=== PATIENT | female | born 1970 | race Two or more races ===

== ENCOUNTER 2020-11-18 11:00 | Inpatient (IN) | payer OTHER ==
[~2020-11-18] VITALS: Ht 157.5 cm; Wt 80.3 kg
[2020-11-18] MEDS ORDERED: TYLENO PO (13:40)
[2020-11-18] MEDS ORDERED: PEPCID AC10 MG PO (13:49)
[2020-11-22] MEDS ORDERED: DEXAMETHASONE4 MG (08:14)
[2020-11-22] MEDS ORDERED: ARIPIPRAZOLE2 MG (08:14)
[2020-11-22] MEDS ORDERED: CLONAZEPAM1 MG (08:14)
[2020-11-22] MEDS ORDERED: BUPROPION XL150 MG (08:14)
[2020-11-22] MEDS ORDERED: DICLOFENAC POTA50 MG (08:15)
[2020-11-22] MEDS ORDERED: MONTELUKAST SOD10 MG (08:15)
[2020-11-22] MEDS ORDERED: PANTOPRAZOLE SO40 MG (08:15)
[2020-11-22] MEDS ORDERED: OXYC1TAB9 (08:15)
[2020-11-22] MEDS ORDERED: FAMOTIDINE40 MG (11:18)
[2020-11-22] MEDS ORDERED: TYLENOL325 MG PO (11:18)
[2020-11-22] MEDS ORDERED: DICLOFENAC SOD100 GM (11:19)
[2020-11-22] MEDS ORDERED: DICYCLOMINE HCL20 MG (11:19)
[2020-11-22] MEDS ORDERED: DULOXETINE HCL30 MG (11:19)
[2020-11-22] MEDS ORDERED: SPIRIVA RESPIMAT4 GM (11:19)
[2020-11-22] MEDS ORDERED: IMIPRAMINE HCL50 MG (11:19)
[2020-12-13] MEDS ORDERED: PERCOCET 5-3251 EACH PO (13:29)
[2020-12-13] MEDS ORDERED: PEPCID AC20 MG PO (13:30)
== END 2020-12-13 18:26 | disposition home or self-care (01) | DRG 330 ==
LOC: SURG 11-22 05:29 → O/R 11-22 05:29 → SURH 11-22 11:00 → SURG 11-22 12:29 → SURH 11-22 12:30 → SURG 11-27 13:18 → SURH 12-04 17:39
PROVIDERS: ADMIT Surgery; ATTEND Surgery
PROC: 0DBP4ZZ Excision of Rectum, Percutaneous Endoscopic Approach (ICD-10-PCS; 2020-11-22)
PROC: 0DJD8ZZ Inspection of Lower Intestinal Tract, Via Natural or Artificial Opening Endoscopic (ICD-10-PCS; 2020-11-22)
PROC: 0DBN4ZZ Excision of Sigmoid Colon, Percutaneous Endoscopic Approach (ICD-10-PCS; principal; 2020-11-22 12:30)
DX: K57.30 Diverticulosis of large intestine without perforation or abscess without bleeding (principal); N82.3 Fistula of vagina to large intestine; M06.9 Rheumatoid arthritis, unspecified; J45.20 Mild intermittent asthma, uncomplicated; F41.8 Other specified anxiety disorders